=== PATIENT | female | born 1940 | race Caucasian/White ===

== ENCOUNTER 2017-10-24 11:37 | Day surgery (SDC) | payer OTHER ==
[~2017-10-24 11:37] MED LIST: LACTATED RINGERS 1,000 ML IV.SOLN IV ONE; PROPOFOL 200 MG/20 ML VIAL IV ONE; SALINE FLUSH 10 ML DISP.SYRIN IVF ONE
--- NOTE | 2017-10-25 12:19 | GI Report ---
REFERRING PHYSICIAN: Dr. Garcia Fields PUNCH MACHINE HAND: Aly Soliz MD PROCEDURE MEDICATION: Propofol as per anesthesia. INDICATIONS: Patient is a 77-year-old woman here for a screening since it has been 10 years since her last colonoscopy. She has had a little more trouble recently with constipation but no bleeding. No pain. On exam, she does have central obesity. Lungs are clear. Heart is regular. PROCEDURE PERFORMED: Colonoscopy. PROCEDURE: An Olympus video colonoscope was advanced to the rectum. She does have diverticular disease of the sigmoid and descending colon. An atonic redundant colon and it took some maneuvering and nurse compression to finally reach the base of the cecum. The appendiceal orifice and ileocecal valve were normal. On slow withdrawal, the cecum, ascending colon, and transverse colon had redundancy and maybe a little bit of melanosis coli. The descending colon and sigmoid with redundancy, diverticular disease, and melanosis coli. Retroflexion of the rectum was normal. Patient tolerated the procedure well. FINDINGS: 1. Diverticular disease of sigmoid and descending colon. 2. Melanosis coli. 3. Redundant colon. RECOMMENDATIONS: 1. Would discontinue using Senna or laxatives. 2. She can take MiraLAX or Benefiber daily. 3. Consider re-looking at her colon in 10 years, sooner if clinically indicated. cc: Dr. Garcia DENIS
== END 2017-10-24 11:40 ==
LOC: OPSURG 11:37
PROVIDERS: ATTEND Internal Medicine Gastroenterology
DX: Z12.11 Encounter for screening for malignant neoplasm of colon (principal); K63.89 Other specified diseases of intestine; Q43.8 Other specified congenital malformations of intestine; K59.00 Constipation, unspecified
CPT/HCPCS: J2704; J7120; G0121; S1016

== ENCOUNTER 2019-01-09 09:25 | Outpatient (CLI) | payer OTHER ==
[2019-01-09 09:47] LABS: BASOPHILS % 1.4 % (0.0-1.5); EOSINOPHILS % 2.9 % (0.0-6.8); MEAN CORPUSCULAR HEMOGLOBIN 31.4 pg (28.0-34.0); MONOCYTES % 7.4 % (0.0-11.0); NEUTROPHILS # 3.7 # k/uL (1.4-7.7)
[2019-01-09 10:10] LABS: eGFR (Non-African) > 60
== END 2019-01-09 09:27 ==
LOC: LAB 09:25
PROVIDERS: ATTEND Family Medicine
DX: I10 Essential (primary) hypertension (principal); R94.5 Abnormal results of liver function studies; E03.9 Hypothyroidism, unspecified
CPT/HCPCS: 36415; 80053; 80061; 84443; 85025